=== PATIENT | female | born 1935 | race Caucasian/White ===

== ENCOUNTER → 2016-12-13 | Day surgery (SDC) | payer MEDICARE, OTHER ==
[~2016-12-13] MED LIST: ACETAMINOPHEN PO; ASPIRIN PO; ASPIRIN81 M2 PO; CALCIUM 600 + D1 TA1 PO; CALCIUM 600 + D1 TAB PO; DOC-Q-LACE100 MG PO; FISH OIL 1,0001 CAP PO; FISH OIL 1,001000 MG PO; GLUCOPHAGE XR500 MG PO; HCTZ PO; LEVOTHYROXINE100 MCG PO; LISINOPRIL-HCTZ1 T14 PO; LISINOPRIL30 MG PO; LOVASTATIN20 M1 PO; MEVACOR PO; MIRALAX17 G2 PO; OMEPRAZOLE20 M2 PO; PAIN RELIEF500 M2 PO; PROLIA60 MG/1 ML SUBQ; SENNA S TABLET1 TAB PO; SYNTHROID PO; TYLENOL ALLERGY1 T11 PO; VITAMIN D31000 UNI1 PO; VITAMIN D50000 UNIT PO; ZESTORETIC 20/21 TAB PO
--- NOTE | ~2016-12-13 | OR ---
Unit #: [id number] #: [id number] Patient: OBDULIO MANN [id number] [address] [address] [id number] O MR#: [id number] NAME: OBDULIO MANN. ROOM: Date of Procedure: 12/13/2016 Admission Date: 12/13/2016 Surgeon: Massimo Acevedo M.D. : 1935 Attending Physician: Massimo Acevedo M.D. Primary Care Physician: Jamil Allen M.D. OPERATIVE REPORT PREOPERATIVE DIAGNOSIS The patient has presented for surveillance colonoscopy having had personal history of colonic adenomas removed in the past. PROCEDURES PERFORMED 1. Colonoscopy and polypectomy. 2. Colonoscopy and submucosal injection. POSTOPERATIVE DIAGNOSES 1. The patient had a large sessile polyp in the cecum with a classic appearance of a serrated adenoma. This was removed after submucosal injection of methylcellulose followed by polypectomy. The gap left by the polypectomy site was then closed using an Endoclip placement. 2. The patient also had moderate quinones-diverticulosis. 3. Rest of the examination up to cecum and terminal ileum was normal. The quality of the prep was excellent. RECOMMENDATIONS Follow up results of polyp histology and consider repeat colonoscopy in 3 to 5 years. SEDATION USED MAC. DESCRIPTION OF PROCEDURE Following detailed explanation of potential risks and complications of a colonoscopy, namely perforation, bleeding, and complications related to sedation, the patient was brought to GI lab and laid in the left lateral decubitus position. A digital rectal examination was performed, which was normal. Lubricated tip of the Olympus video colonoscope was inserted through the anus and advanced under direct vision. The scope was advanced and passed up to sigmoid into descending colon. Multiple small to medium-sized diverticula were noted in this area. The scope tip was then navigated all the way up to cecum with visualization of the ileocecal valve and the appendiceal orifice. Preparation was excellent with good visualization and photodocumentation was obtained. Last few inches of terminal ileum also visualized after intubation of the ileocecal valve and appeared normal. Successive segments of the colonic mucosa were examined upon withdrawal. A large sessile polyp was noted in the cecum adjacent to appendiceal orifice. This was covered with mucus cap and upon washing with a mucus cap, underlying serrated adenoma was visualized. This was about 1.5 to 2 cm in size. We then proceeded with the polypectomy after Unit #: [id number] #: [id number] Patient: OBDULIO MANN submucosal injection of methylcellulose. The polyp was then removed in toto using snare cautery polypectomy, retrieved, and sent for histology. The gap left by the polypectomy site was closed using placement of a single Endoclip. No additional polyps noted. The patient did have evidence of [id number] diverticulosis of the sigmoid and descending colon in the left side. No hemorrhoids were seen at the anal verge. The scope was then withdrawn. The patient returned to recovery area. She tolerated the procedure without any postprocedure complications. Dictated by... Mikel Landers/mary lou TD: 12/14/2016 03:12 JOB #: [id number] OPERATIVE REPORT Page 1 of 1 X Massimo Acevedo MD PROCEDURE OPERATIVE NOTE
== END | disposition home or self-care (01) ==
LOC: COPS 12:31
DX: Z12.11 Encounter for screening for malignant neoplasm of colon (principal); K63.5 Polyp of colon; K57.30 Diverticulosis of large intestine without perforation or abscess without bleeding; E03.9 Hypothyroidism, unspecified; N39.3 Stress incontinence (female) (male); K21.9 Gastro-esophageal reflux disease without esophagitis; I10 Essential (primary) hypertension; M81.0 Age-related osteoporosis without current pathological fracture; Z87.01 Personal history of pneumonia (recurrent); Z86.010 Personal history of colon polyps; Z90.711 Acquired absence of uterus with remaining cervical stump; Z98.41 Cataract extraction status, right eye; Z98.42 Cataract extraction status, left eye; Z90.49 Acquired absence of other specified parts of digestive tract; Z88.2 Allergy status to sulfonamides; Z88.8 Allergy status to other drugs, medicaments and biological substances; Z79.52 Long term (current) use of systemic steroids; Z79.899 Other long term (current) drug therapy
CPT/HCPCS: 88305; 88313

== ENCOUNTER → 2017-01-03 | Outpatient (CLI) | payer MEDICARE, OTHER ==
--- NOTE | ~2017-01-03 | BD1 ---
[facility] A Service of [facility] & [facility] RADIOLOGY TEXT RESULTS PATIENT: OBDULIO MANN LOCATION: [facility] : 35 UNIT #: [id number] AGE: [address]: Jamil Allen MD SEX: F ORDER DR: [id number] [address] [address] [id number] O MR#: [id number] Acc #: [id number] NAME: OBDULIO MANN. : 1935 SEX: F STUDY DATE/TIME: 01/03/2017 10:46 UNIT: [facility] ROOM: STUDY DESCRIPTION: Dexa Bone Dens 1+ Site Attending Physician: Jamil Allen M.D. Referring Physician: Jamil Allen M.D. Ordering Physician: Jamil Allen M.D. Primary Care Physician: Jamil Allen M.D. MEDICAL IMAGING REPORT This report is preliminary unless electronic signature is present. EXAM Bone densitometry 01/03/2017 HISTORY 81-year-old postmenopausal female. FINDINGS The bone mineral density of the lumbar spine (L1-L4) was calculated at 0.897 g/cm2. This correlates with a T-score of -2.4 and a Z-score of -1.2. This is classified as osteopenia. The bone mineral density of the right proximal femoral neck is calculated at 0.825 g/cm2. This correlates with a T-score of -1.5 and a Z-score of 0.2. This is classified as osteopenia. The bone mineral density of the left proximal femoral neck region is calculated at 0.809 g/cm2. This correlates with a T-score of -1.6 and a Z-score of 0.1. This is classified as osteopenia. IMPRESSION Osteopenia. Dictated by... Esdras Garza M.D. THIS IS AN ELECTRONICALLY VERIFIED REPORT Esdras Garza M.D. at 01/03/2017 4:31 PM RICHARD/leroy TD: 01/03/2017 13:57 JOB #: [id number] [facility] A Service of [facility] & [facility] RADIOLOGY TEXT RESULTS PATIENT: OBDULIO MANN [id number] : [birth year] UNIT #: [id number] AGE: [address]: Jamil Allen MD SEX: F ORDER DR: MEDICAL IMAGING REPORT Page 1 of 1
== END | disposition home or self-care (01) ==
LOC: SRAD 11:13
DX: M81.0 Age-related osteoporosis without current pathological fracture (principal); M85.862 Other specified disorders of bone density and structure, left lower leg
CPT/HCPCS: 77080